=== PATIENT | male | born 1995 | race Caucasian/White ===

== ENCOUNTER 2018-01-18 18:37 | Emergency (ER) | payer OTHER, BC ==
[2018-01-18] MEDS: predniSONE 20 MG TAB PO (19:12)
== END 2018-01-18 19:44 | disposition home or self-care (01) ==
LOC: M ED 18:37
DX: J45.901 Unspecified asthma with (acute) exacerbation (principal)
CPT/HCPCS: 99282

== ENCOUNTER 2018-12-14 09:35 | Emergency (ER) | payer MEDICAID, OTHER ==
[~2018-12-14] VITALS: Ht 180.3 cm; Wt 87.7 kg
[~2018-12-14 09:35] MED LIST: ADV250INH INH; ALBU17IN2 PO; BREAMIS6 XX; CITA20TA6 PO; FLON0.054; LISI10TA4 PO; MECL-68 PO; MONT10TA2 PO; PRED20TA PO; PROZ20CA11 PO; TRAZ-252 PO; ZEST1TAB6 PO
[2018-12-14 09:36] VITALS: BP 140/76
[2018-12-14] MEDS ORDERED: LISI10TA4 PO (09:39)
[2018-12-14] MEDS ORDERED: QC A650T3 PO (09:51)
[2018-12-14] MEDS ORDERED: PENI500T PO (09:51)
[2018-12-14] MEDS ORDERED: IBUP-1022 PO (09:51)
== END 2018-12-14 10:09 | disposition home or self-care (01) ==
LOC: M ED 09:35
DX: K02.9 Dental caries, unspecified (principal); K08.89 Other specified disorders of teeth and supporting structures; F41.9 Anxiety disorder, unspecified; F32.9 Major depressive disorder, single episode, unspecified; Z79.899 Other long term (current) drug therapy

== ENCOUNTER 2019-02-22 20:42 | Emergency (ER) | payer MEDICAID, OTHER ==
[~2019-02-22] VITALS: Ht 182.9 cm; Wt 92.8 kg
[~2019-02-22 20:42] MED LIST changes: +IBUP-1022 PO; +PENI500T PO; +QC A650T3 PO
[2019-02-22 21:34] LABS: BASO % 0.5 % (0.0-1.0); EOS # 0.2 10^3/uL (0.0-0.5); EOS % 2.1 % (0.0-3.0); HEMATOCRIT 47.2 % (42.0-52.0); HEMOGLOBIN 16.3 g/dl (13.5-17.5); LYMPH # 1.6 10^3/uL (1.5-5.0); LYMPH % 20.4 % (24.0-44.0); MEAN CORPUSCULAR HEMOGLOBIN 29.7 pg (27.0-33.0); MEAN CORPUSCULAR HGB CONC 34.5 g/dl (32.0-36.5); MEAN CORPUSCULAR VOLUME 86.1 fl (80.0-96.0); MONO # 0.8 10^3/uL (0.0-0.8); NEUTROPHILS # 5.3 10^3/uL (1.5-8.5); NEUTROPHILS % 66.6 % (36.0-66.0); PLATELET COUNT, AUTOMATED 247 10^3/uL (150-450); RED BLOOD COUNT 5.48 10^6/uL (4.30-6.10); WHITE BLOOD COUNT 7.9 10^3/uL (4.0-10.0)
[2019-02-22 22:12] LABS: ALBUMIN 3.8 GM/DL (3.2-5.2); ALT/SGPT 47 U/L (12-78); BILIRUBIN,DIRECT 0.3 MG/DL (0.0-0.2); BILIRUBIN,TOTAL 1.8 MG/DL (0.2-1.0); BLOOD UREA NITROGEN 13 MG/DL (7-18); CALCIUM LEVEL 8.9 MG/DL (8.5-10.1); CARBON DIOXIDE LEVEL 29 MEQ/L (21-32); CHLORIDE LEVEL 106 MEQ/L (98-107); GLOMERULAR FILTRATION RATE > 60.0 (>60); GLUCOSE, FASTING 96 MG/DL (70-100); LIPASE 43 U/L (73-393); POTASSIUM SERUM 3.8 MEQ/L (3.5-5.1); SODIUM LEVEL 139 MEQ/L (136-145); TOTAL PROTEIN 7.1 GM/DL (6.4-8.2)
[2019-02-22] MEDS ORDERED: DICY10CA13 PO (23:04)
[2019-02-22 23:46] VITALS: BP 140/82
--- NOTE | 2019-02-23 08:34 | REP ---
KUB: Two views. History: Abdomen distension. Diarrhea. Findings: There is air and some fluid in a nondilated right colon. No small bowel dilation is seen. Psoas margins and flank stripes are intact. There is a benign sclerotic area in the ischium on the right consistent with a large bone island. Impression: Some fluid in the right colon. Otherwise unremarkable abdomen views. Electronically Signed by Amado Marcelo MD 02/23/2019 08:25 A
[2019-02-23] MEDS ORDERED: VANC1CAP6 PO (14:49)
[2019-02-23] MEDS ORDERED: ONDA4TAB6 PO (14:49)
== END 2019-02-22 23:47 | disposition home or self-care (01) ==
LOC: M ED 20:42
DX: R19.7 Diarrhea, unspecified (principal); R51 Headache; I10 Essential (primary) hypertension; J45.909 Unspecified asthma, uncomplicated; Z79.899 Other long term (current) drug therapy

== ENCOUNTER 2019-02-23 11:40 | Emergency (ER) | payer OTHER ==
[~2019-02-23] VITALS: Ht 182.9 cm; Wt 91.3 kg
[~2019-02-23 11:40] MED LIST changes: +DICY10CA13 PO
[2019-02-23] MEDS ORDERED: NS 1,000 ML IV ONE (12:45)
[2019-02-23] MEDS ORDERED: ONDANSETRON 4MG/2ML VIAL (J2405) IV ONE (12:45)
[2019-02-23] MEDS ORDERED: VANCOMYCIN ORAL SOL 250MG/5ML ORAL SYRINGE PO ONE (12:45)
[2019-02-23 13:07] LABS: BASO % 0.2 % (0.0-1.0); EOS % 0.3 % (0.0-3.0); HEMATOCRIT 45.1 % (42.0-52.0); HEMOGLOBIN 15.7 g/dl (13.5-17.5); LYMPH # 0.9 10^3/uL (1.5-5.0); LYMPH % 10.3 % (24.0-44.0); MEAN CORPUSCULAR HEMOGLOBIN 30.1 pg (27.0-33.0); MEAN CORPUSCULAR HGB CONC 34.8 g/dl (32.0-36.5); MEAN CORPUSCULAR VOLUME 86.6 fl (80.0-96.0); MONO # 0.6 10^3/uL (0.0-0.8); NEUTROPHILS # 7.2 10^3/uL (1.5-8.5); PLATELET COUNT, AUTOMATED 249 10^3/uL (150-450); RED BLOOD COUNT 5.21 10^6/uL (4.30-6.10); WHITE BLOOD COUNT 8.8 10^3/uL (4.0-10.0)
[2019-02-23 13:41] LABS: ALT/SGPT 43 U/L (12-78); BLOOD UREA NITROGEN 11 MG/DL (7-18); CALCIUM LEVEL 8.9 MG/DL (8.5-10.1); CARBON DIOXIDE LEVEL 27 MEQ/L (21-32); CHLORIDE LEVEL 105 MEQ/L (98-107); CREATININE FOR GFR 0.82 MG/DL (0.70-1.30); GLOMERULAR FILTRATION RATE > 60.0 (>60); GLUCOSE, FASTING 97 MG/DL (70-100); POTASSIUM SERUM 3.7 MEQ/L (3.5-5.1); SODIUM LEVEL 142 MEQ/L (136-145)
[2019-02-23 13:42] LABS: BILIRUBIN,DIRECT 0.3 MG/DL (0.0-0.2); BILIRUBIN,TOTAL 1.8 MG/DL (0.2-1.0); LIPASE 36 U/L (73-393); TOTAL PROTEIN 6.9 GM/DL (6.4-8.2)
[2019-02-23] MEDS ORDERED: VANC1CAP6 PO (14:49)
[2019-02-23] MEDS ORDERED: ONDA4TAB6 PO (14:49)
[2019-02-23 15:49] VITALS: BP 139/72
[2019-02-24] MEDS ORDERED: DICY10CA13 (08:21)
== END 2019-02-23 15:52 | disposition home or self-care (01) ==
LOC: M ED 11:40
DX: A04.72 Enterocolitis due to Clostridium difficile, not specified as recurrent (principal); K51.90 Ulcerative colitis, unspecified, without complications; I10 Essential (primary) hypertension; R51 Headache; J45.909 Unspecified asthma, uncomplicated; Z79.899 Other long term (current) drug therapy
CPT/HCPCS: 80048; 80076; 83690; 85025; 96361; 96374; 99284; J2405

== ENCOUNTER 2019-02-24 07:56 | Emergency (ER) | payer OTHER ==
[~2019-02-24] VITALS: Ht 180.3 cm; Wt 86.4 kg
[~2019-02-24 07:56] MED LIST changes: +ONDA4TAB6 PO; +VANC1CAP6 PO
[2019-02-24] MEDS ORDERED: DICY10CA13 (08:21)
[2019-02-24] MEDS ORDERED: NS 1,000 ML IV ONE (09:45)
[2019-02-24] MEDS ORDERED: ONDANSETRON 4MG/2ML VIAL (J2405) IV ONE (09:45)
[2019-02-24 10:23] LABS: BASO % 0.5 % (0.0-1.0); EOS # 0.1 10^3/uL (0.0-0.5); EOS % 1.1 % (0.0-3.0); HEMATOCRIT 44.4 % (42.0-52.0); LYMPH # 0.9 10^3/uL (1.5-5.0); LYMPH % 13.7 % (24.0-44.0); MEAN CORPUSCULAR HEMOGLOBIN 29.6 pg (27.0-33.0); MEAN CORPUSCULAR HGB CONC 33.8 g/dl (32.0-36.5); MEAN CORPUSCULAR VOLUME 87.6 fl (80.0-96.0); MONO # 0.4 10^3/uL (0.0-0.8); MONO % 6.5 % (0.0-5.0); NEUTROPHILS % 77.9 % (36.0-66.0); PLATELET COUNT, AUTOMATED 228 10^3/uL (150-450); RED BLOOD COUNT 5.07 10^6/uL (4.30-6.10); WHITE BLOOD COUNT 6.4 10^3/uL (4.0-10.0)
[2019-02-24 10:53] LABS: BLOOD UREA NITROGEN 11 MG/DL (7-18); CALCIUM LEVEL 9.1 MG/DL (8.5-10.1); CARBON DIOXIDE LEVEL 29 MEQ/L (21-32); CHLORIDE LEVEL 106 MEQ/L (98-107); CREATININE FOR GFR 0.85 MG/DL (0.70-1.30); GLOMERULAR FILTRATION RATE > 60.0 (>60); GLUCOSE, FASTING 88 MG/DL (70-100); POTASSIUM SERUM 3.9 MEQ/L (3.5-5.1); SODIUM LEVEL 140 MEQ/L (136-145)
[2019-02-24 12:27] VITALS: BP 126/68
== END 2019-02-24 12:29 | disposition home or self-care (01) ==
LOC: M ED 07:56
DX: A04.71 Enterocolitis due to Clostridium difficile, recurrent (principal); E86.0 Dehydration; I10 Essential (primary) hypertension; J45.909 Unspecified asthma, uncomplicated; Z86.19 Personal history of other infectious and parasitic diseases; Z79.899 Other long term (current) drug therapy
CPT/HCPCS: 80048; 85025; 96361; 96374; 99284; J2405